=== PATIENT | female | born 1975 | race African-American/Black ===

== ENCOUNTER 2018-07-26 11:18 | Emergency (ER) | payer MEDICAID ==
[2018-07-26] MEDS: hydrALAzine 20 MG INJ IV (12:26)
[2018-07-26 12:27] LABS: ADD MAN DIFF? NO
[2018-07-26 12:29] LABS: ABNORMAL IP MESSAGE 1; BASOPHILS % 0.5 % (0.0-2.0); EOSINOPHILS # 0.1 10^3/ul (0.0-0.5); EOSINOPHILS % 1.4 % (0.0-7.0); HEMOGLOBIN 13.7 g/dl (12.0-16.0); LYMPHOCYTES # 1.8 10^3/ul (0.8-2.9); LYMPHOCYTES % 20.3 % (15.0-51.0); MEAN CORPUSCULAR HEMOGLOBIN 23.8 pg (29.0-33.0); MEAN CORPUSCULAR HGB CONC 31.1 g/dl (32.0-37.0); MEAN CORPUSCULAR VOLUME 76.5 fl (82.0-101.0); MEAN PLATELET VOLUME 11.4 fl (7.4-10.4); MONOCYTE # 0.6 10^3/ul (0.3-0.9); MONOCYTES % 7.1 % (0.0-11.0); NEUTROPHIL # 6.2 10^3/ul (1.6-7.5); NEUTROPHILS % 70.2 % (39.0-77.0); PLATELET COUNT 195 10^3/UL (140-415); RED BLOOD COUNT 5.75 10^6/ul (4.20-5.40); RED CELL DISTRIBUTION WIDTH 15.1 % (11.5-14.5)
[2018-07-26 12:29] LABS: WHITE BLOOD COUNT 8.9 10^3/ul (4.8-10.8)
[2018-07-26 12:32] LABS: POSITIVE DIFF @See below
[2018-07-26 12:45] LABS: ANION GAP 8 (5-13); BLOOD UREA NITROGEN 19 mg/dl (7-20); CALCIUM 9.6 mg/dl (8.4-10.2); CARBON DIOXIDE 33 mmol/L (21-31); CHLORIDE 101 mmol/L (97-110); Estimated GFR 49 mL/min (>60); GLUCOSE 130 mg/dl (70-220); SODIUM 142 mmol/L (135-144)
[2018-07-26 12:48] LABS: INR 0.88; PT RATIO 0.9
[2018-07-26 12:49] LABS: PARTIAL THROMBOPLASTIN TIME 27.1 Sec (23.0-35.0); POTASSIUM 2.9 mmol/L (3.5-5.1)
[2018-07-26] MEDS: POTASSIUM CHLORIDE (SR) 20 MEQ TAB PO (13:01)
[2018-07-26] MEDS: DIPHENHYDRAMINE 50 MG INJ IV (13:19)
[2018-07-26] MEDS: METOCLOPRAMIDE 10 MG INJ IV (13:19)
== END 2018-07-26 16:08 | disposition home or self-care (01) ==
LOC: E/R 11:18
DX: E87.6 Hypokalemia (principal); I10 Essential (primary) hypertension
CPT/HCPCS: 36415; 70450; 80048; 85025; 85610; 85730; 96374; 96375; 99285-25